=== PATIENT | female | born 1945 | race Native Hawaiian/Other Pacific Islander ===

== ENCOUNTER 2021-06-14 15:21 | Inpatient (IN) | payer OTHER ==
[~2021-06-14] VITALS: Ht 154.9 cm; Wt 65.3 kg
[2021-06-14 20:00] VITALS: BP 165/50; TEMP 97.9
[2021-06-14 23:15] VITALS: BP 189/63; TEMP 97.9; Ht 154.9 cm; Wt 65.3 kg
[2021-06-15 08:00] VITALS: BP 125/56; TEMP 98.7
[2021-06-15] MEDS ORDERED: MORPHINE SUL15 MG PO (16:30)
[2021-06-15] MEDS ORDERED: METFORMIN HYDR500 M1 PO (16:31)
[2021-06-15] MEDS ORDERED: PROMETHAZINE12.5 M3 PO (16:32)
[2021-06-15] MEDS ORDERED: QUETIAPINE50 MG PO (16:32)
[2021-06-15] MEDS ORDERED: AMITRIPTYLINE H50 MG PO (16:33)
[2021-06-15] MEDS ORDERED: ALBUTEROL0.083 % INH (16:33)
[2021-06-15] MEDS ORDERED: LIPITOR20 MG PO (16:34)
[2021-06-15] MEDS ORDERED: FLUTICASON50 MCG/AC1 NAS (16:35)
[2021-06-15] MEDS ORDERED: GLIM2TAB PO (16:36)
[2021-06-15] MEDS ORDERED: MONTELUKAST SOD10 MG PO (16:36)
[2021-06-15] MEDS ORDERED: PANTOPRAZOLE 40MG TA PO (16:37)
[2021-06-15] MEDS ORDERED: BENZONATATE200 MG PO (16:38)
[2021-06-15] MEDS ORDERED: AMLODIPINE PO (16:39)
[2021-06-15] MEDS ORDERED: PERCOCET1 TA3 PO (16:40)
[2021-06-15] MEDS ORDERED: FEROSUL325 MG PO (16:40)
[2021-06-15 20:00] VITALS: BP 157/59; TEMP 98.4
[2021-06-16 08:00] VITALS: BP 128/60; TEMP 97.5
[2021-06-16 20:09] VITALS: BP 149/70; TEMP 98.4
[2021-06-17 08:00] VITALS: BP 141/56; TEMP 98.1
[2021-06-17 20:21] VITALS: BP 149/76; TEMP 99.2
[2021-06-18 08:00] VITALS: BP 181/58; TEMP 97.9
[2021-06-18 20:21] VITALS: BP 107/68; TEMP 99.8
[2021-06-19 05:48] LABS: PLATELET COUNT 192 K/uL (152-353)
[2021-06-19 05:55] LABS: POTASSIUM 4.3 mmol/L (3.6-5.2)
[2021-06-19 08:00] VITALS: BP 134/61; TEMP 98
[2021-06-19 20:00] VITALS: BP 148/60; TEMP 99.1
[2021-06-20 08:00] VITALS: BP 133/53; TEMP 98.1
[2021-06-20 20:00] VITALS: BP 153/60; TEMP 98.2
[2021-06-21 08:00] VITALS: BP 138/52; TEMP 98
[2021-06-21 20:00] VITALS: BP 142/61; TEMP 98.1
[2021-06-22 08:00] VITALS: BP 130/54; TEMP 98.4
[2021-06-22 20:21] VITALS: BP 174/47; TEMP 98.6
[2021-06-23 08:00] VITALS: BP 139/55; TEMP 97.9
[2021-06-23 20:00] VITALS: BP 138/63; TEMP 98.6
[2021-06-24 08:00] VITALS: BP 143/59; TEMP 97.4
[2021-06-24 20:00] VITALS: BP 127/56; TEMP 98.7
[2021-06-25 08:00] VITALS: BP 127/57; TEMP 97.5
[2021-06-25 20:00] VITALS: BP 125/53; TEMP 98.8
[2021-06-26 08:00] VITALS: BP 112/51; TEMP 97.6
[2021-06-26 20:00] VITALS: BP 152/75; TEMP 97.4
[2021-06-27 08:00] VITALS: BP 123/72; TEMP 97.6
[2021-06-27 20:00] VITALS: BP 139/61; TEMP 99
[2021-06-28 08:00] VITALS: BP 138/61; TEMP 97.6
[2021-06-28 20:00] VITALS: BP 161/59; TEMP 98.9
[2021-06-29 08:00] VITALS: BP 116/51; TEMP 97.9
[2021-06-29 20:00] VITALS: BP 147/66; TEMP 98.7
[2021-06-30 08:00] VITALS: BP 136/76; TEMP 98
[2021-06-30 19:56] VITALS: BP 141/53; TEMP 97.9
[2021-07-01 08:00] VITALS: BP 126/52; TEMP 97.5
[2021-07-01 20:00] VITALS: BP 136/59; TEMP 98.2
[2021-07-02 08:00] VITALS: BP 148/61; TEMP 98.5
[2021-07-02 20:33] VITALS: BP 149/51; TEMP 98.5
[2021-07-03 08:25] VITALS: BP 149/56; TEMP 97.7
[2021-07-03 20:00] VITALS: BP 147/69; TEMP 98.4
[2021-07-04 08:00] VITALS: BP 142/56; TEMP 97.8
[2021-07-04 20:00] VITALS: BP 153/65; TEMP 99.1
[2021-07-05 08:00] VITALS: BP 124/68; TEMP 97.5
[2021-07-05 20:15] VITALS: BP 128/71; TEMP 98.4
[2021-07-06 08:00] VITALS: BP 152/65; TEMP 97.4
[2021-07-06 20:10] VITALS: BP 137/63; TEMP 98.1
[2021-07-07 08:00] VITALS: BP 127/59; TEMP 98.1
[2021-07-07 20:00] VITALS: BP 139/71; TEMP 98.1
[2021-07-08 08:00] VITALS: BP 123/55; TEMP 97.7
== END 2021-07-08 10:20 | disposition home health service (06) | DRG 57 ==
LOC: SWING 15:21 → MED/SURG 18:47
PROVIDERS: Internal Medicine; ADMIT Internal Medicine Endocrinology, Diabetes & Metabolism; ATTEND Internal Medicine Endocrinology, Diabetes & Metabolism
DX: I69.351 Hemiplegia and hemiparesis following cerebral infarction affecting right dominant side (principal); J44.9 Chronic obstructive pulmonary disease, unspecified; E11.9 Type 2 diabetes mellitus without complications; M62.81 Muscle weakness (generalized); R26.81 Unsteadiness on feet; R26.2 Difficulty in walking, not elsewhere classified; R27.0 Ataxia, unspecified; R48.8 Other symbolic dysfunctions; R47.1 Dysarthria and anarthria; Z74.1 Need for assistance with personal care; N39.0 Urinary tract infection, site not specified; B96.20 Unspecified Escherichia coli [E. coli] as the cause of diseases classified elsewhere; F41.9 Anxiety disorder, unspecified; I10 Essential (primary) hypertension; K21.9 Gastro-esophageal reflux disease without esophagitis; E78.5 Hyperlipidemia, unspecified
CPT/HCPCS: 36415; 80053; 81000; 82272; 85027; 87077; 87086; 87088; 87186; 94760; J2405